=== PATIENT | male | born 1970 | race Hispanic/Latino ===

== ENCOUNTER 2020-10-29 12:03 | Emergency (ER) | payer OTHER, SELFPAY ==
--- OUTSIDE RECORDS SUMMARY | 2020-10-29 12:05 | XMS REPORT | Continuity of Care Document ---
:1970 Author Organization [facility] t Address [address] [place] [address] Care Team Providers Name Role Phone Erika Fisher RN Attending Clinician Dimple Jorgensen DO Attending Clinician Maryan Sanchez Attending Clinician Hipolito Attending Clinician Ashlyn FLORES Attending Clinician Johnny HICKEY Attending Clinician Luis HICKEY Attending Clinician Cameron HICKEY Attending Clinician Cameron HICKEY Admitting Clinician Payers Payer Name Policy Type Policy Number Effective Date Expiration Date S ource Problems This patient has no known problems. Allergies, Adverse Reactions, Alerts This patient has no known allergies or adverse reactions. Medications This patient has no known medications. Procedures This patient has no known procedures. Encounters Start End Encounter Admission Attending Care Care Encounter Source Date/Time Date/Time Type Type Clinicians Facility Department ID 2020-10-18 2020-10-18 Patient Erika Fisher [id number] 00:00:00 00:00:00 Outreach E [place] [id number] [place] [id number] 2020-10-11 2020-10-11 Patient Erika Fisher [id number] 00:00:00 00:00:00 Outreach E [place] [id number] [place] [id number] 2020-10-06 2020-10-06 Emergency [facility] [id number] 11:18:00 14:27:00 Ce [place] [id number] [place] [id number] [place] [id number] 2020-10-02 2020-10-02 Emergency [facility] [id number] 18:17:00 22:59:00 Laisha [place] [id number] [place] [id number] [place] [id number] 2020-09-29 2020-09-29 Transition Donald Mcmillan [id number] 00:00:00 00:00:00 of Care Delaney [place] [id number] [place] [id number] 2020-09-29 2020-09-29 Transition Donald Goldberg [id number] 00:00:00 00:00:00 of Care Nadiya [place] [id number] [place] [id number] 2020-09-25 2020-09-27 [facility] Sreedhar Turner [facility] [id number] 13:46:00 14:30:00 Encounter Martín Smith [id number] Mary [place] [id number] [place] [id number] Results This patient has no known results.
[2020-10-29] MEDS ORDERED: TRAMADOL HCL 50 MG TAB ONE (14:16)
[2020-10-29 14:32] LABS: MPV 8.5 fL (7.6-11.3); RBC Red Blood Cell Count 4.06 M/uL (4.33-5.43)
[2020-10-29 14:59] LABS: ALT/SGPT 69 U/L (12-78); AST/SGOT 56 U/L (15-37); Albumin 1.7 g/dL (3.4-5.0); Alkaline Phosphatase 319 U/L (45-117); BUN Blood Urea Nitrogen 18 mg/dL (7-18); Bicarbonate 26 mmol/L (21-32); Bilirubin Total 0.2 mg/dL (0.2-1.0); Potassium 4.2 mmol/L (3.5-5.1); Protein, Total 5.4 g/dL (6.4-8.2); Sodium Level 128 mmol/L (136-145)
[2020-10-29 15:06] LABS: Glucose Level 696 mg/dL (74-106)
--- NOTE | 2020-10-31 16:35 | ER ---
Nurse's Notes [facility] Name: Lee Dhillon Age: 50 yrs Sex: Male : 1970 Arrival Date: 10/29/2020 Time: 12:05 Bed 16 Private MD: Diagnosis: Diabetes mellitus due to underlying condition with hyperglycemia Presentation: 10/29 12:36 Chief complaint: Patient states: "I fell this morning. My legs and feet gave out on ss me." Pt reports that for the past few months he has been having issues with neuropathy because of his diabetes and has been seen previously for the same thing at [facility]. Coronavirus screen: Client denies travel out of the [place] in the last 14 days. Ebola Screen: Patient denies exposure to infectious person. Patient denies travel to an Ebola-affected area in the 21 days before illness onset. Initial Sepsis Screen: Does the patient meet any 2 criteria? No. Patient's initial sepsis screen is negative. Does the patient have a suspected source of infection? No. Patient's initial sepsis screen is negative. Risk Assessment: Do you want to hurt yourself or someone else? Patient reports no desire to harm self or others. Onset of symptoms is unknown. 12:36 Method Of Arrival: Wheelchair ss 12:36 Acuity: CALLUM 3 ss Triage Assessment: 12:45 General: Appears distressed, uncomfortable, Behavior is cooperative, appropriate for bp age, anxious. Pain: Complains of pain in GENERALIZED. EENT: No deficits noted. Neuro: Level of Consciousness is awake, alert, obeys commands, Oriented to Appropriate for age. Cardiovascular: No deficits noted. Respiratory: No deficits noted. GI: No signs and/or symptoms were reported involving the gastrointestinal system. : No signs and/or symptoms were reported regarding the genitourinary system. Derm: No deficits noted. Musculoskeletal: No deficits noted. Circulation, motion, and sensation intact. Range of motion: intact in all extremities. Historical: - Allergies: 12:39 No Known Allergies; ss - PMHx: 12:39 Diabetes mellitus; Hypertensive disorder; High Cholesterol; Anxiety; Neuropathy; ss Osteoarthritis; Degenerative disc disease; - Immunization history:: Adult Immunizations unknown. - Social history:: Smoking status: Patient reports the use of cigarette tobacco products, smokes one pack cigarettes per day. - Family history:: not pertinent. Screenin:45 Abuse screen: Denies threats or abuse. Denies injuries from another. Nutritional bp screening: No deficits noted. Tuberculosis screening: No symptoms or risk factors identified. Fall Risk Fall in past 12 months (25 points). Assessment: 12:45 General: SEE TRIAGE NOTE. bp 14:00 Reassessment: Patient appears in no apparent distress at this time. No changes from bp previously documented assessment. Patient and/or family updated on plan of care and expected duration. Pain level reassessed. 16:17 Reassessment: PT D/C HOME VIA W/C WITH FAMILY, DX WITH DM AND HYPERGLYCEMIA. bp Vital Signs: 12:36 BP 152 / 89; Pulse 85; Resp 16; Temp 97.9(TE); Pulse Ox 99% on R/A; Weight 88.45 kg; ss Height 5 ft. 10 in. (177.80 cm); Pain 7/10; 14:00 BP 164 / 104; Pulse 70; Resp 16; Pulse Ox 100% ; bp 15:00 BP 161 / 99; Pulse 73; Resp 16; Pulse Ox 100% ; bp 16:00 BP 156 / 99; Pulse 72; Resp 17; Temp 98; Pulse Ox 100% ; bp 12:36 Body Mass Index 27.98 (88.45 kg, 177.80 cm) ss ED Course: 12:05 Patient arrived in ED. am2 12:39 Triage completed. ss 12:39 Arm band placed on right wrist. ss 12:55 Enrique Burgos MD is Attending Physician. ma2 13:38 Bob Jones, RN is Primary Nurse. bp 14:18 CBC w/o diff Sent. bp 14:18 CMP Sent. bp 14:21 Patient has correct armband on for positive identification. Bed in low position. Call bp light in reach. Side rails up X2. 16:17 No provider procedures requiring assistance completed. Patient did not have IV access bp during this emergency room visit. Administered Medications: 14:00 Drug: traMADol 50 mg Route: PO; bp 15:52 Follow up: Response: No adverse reaction; Pain is decreased bp 15:52 Not Given (Patient Refused): Insulin Regular Human 6 units IVP once bp Outcome: 15:49 Discharge ordered by . ma2 16:17 Discharged to home via wheelchair, with family. bp 16:17 Condition: stable 16:17 Discharge instructions given to patient, Instructed on discharge instructions, follow up and referral plans. medication usage, Demonstrated understanding of instructions, follow-up care, Prescriptions given X 2. 16:20 Patient left the ED. bp Signatures: Greta Fisher, RN RN Ramila Lebron am2 Bob Jones RN RN Enrique Marroquin MD MD ma2
--- NOTE | 2020-10-31 16:36 | EDPHYS ---
Physician Documentation [facility] Name: Lee Dhillon Age: 50 yrs Sex: Male : 1970 Arrival Date: 10/29/2020 Time: 12:05 Bed 16 Private MD: ED Physician Enrique Burgos HPI: 10/29 13:37 This 50 yrs old Male presents to ER via Wheelchair with complaints of Fall ma2 Injury, Pain All Over. 13:37 Details of fall: The patient fell from an upright position. Onset: The symptoms/episode ma2 began/occurred gradually, 1 year(s) ago. Severity of symptoms: in the emergency department the symptoms are unchanged. The patient has experienced similar episodes in the past. Has diabetes, chronic pain medicine, chronic swelling and edema, he was follow-up with a primary care doctor does not take any medicines, he is here because he wants medication for his chronic pain.. Historical: - Allergies: 12:39 No Known Allergies; ss - PMHx: 12:39 Diabetes mellitus; Hypertensive disorder; High Cholesterol; Anxiety; Neuropathy; ss Osteoarthritis; Degenerative disc disease; - Immunization history:: Adult Immunizations unknown. - Social history:: Smoking status: Patient reports the use of cigarette tobacco products, smokes one pack cigarettes per day. - Family history:: not pertinent. ROS: 13:37 Constitutional: Negative for fever, chills, and weight loss. ma2 13:37 All other systems are negative. Exam: 13:37 Constitutional: This is a well developed, well nourished patient who is awake, alert, ma2 and in no acute distress. Head/Face: Normocephalic, atraumatic. Eyes: Pupils equal round and reactive to light, extra-ocular motions intact. Lids and lashes normal. Conjunctiva and sclera are non-icteric and not injected. Cornea within normal limits. Periorbital areas with no swelling, redness, or edema. ENT: Nares patent. No nasal discharge, no septal abnormalities noted. Tympanic membranes are normal and external auditory canals are clear. Oropharynx with no redness, swelling, or masses, exudates, or evidence of obstruction, uvula midline. Mucous membranes moist. Neck: Trachea midline, no thyromegaly or masses palpated, and no cervical lymphadenopathy. Supple, full range of motion without nuchal rigidity, or vertebral point tenderness. No Meningismus. Chest/axilla: Normal chest wall appearance and motion. Nontender with no deformity. No lesions are appreciated. Cardiovascular: Regular rate and rhythm with a normal S1 and S2. No gallops, murmurs, or rubs. Normal PMI, no JVD. No pulse deficits. Respiratory: Lungs have equal breath sounds bilaterally, clear to auscultation and percussion. No rales, rhonchi or wheezes noted. No increased work of breathing, no retractions or nasal flaring. Abdomen/GI: Soft, non-tender, with normal bowel sounds. No distension or tympany. No guarding or rebound. No evidence of tenderness throughout. Skin: Warm, dry with normal turgor. Normal color with no rashes, no lesions, and no evidence of cellulitis. MS/ Extremity: Pulses equal, no cyanosis. Neurovascular intact. Full, normal range of motion. Neuro: Awake and alert, GCS 15, oriented to person, place, time, and situation. Cranial nerves II-XII grossly intact. Motor strength 5/5 in all extremities. Sensory grossly intact. Cerebellar exam normal. Normal gait. Vital Signs: 12:36 BP 152 / 89; Pulse 85; Resp 16; Temp 97.9(TE); Pulse Ox 99% on R/A; Weight 88.45 kg; ss Height 5 ft. 10 in. (177.80 cm); Pain 7/10; 14:00 BP 164 / 104; Pulse 70; Resp 16; Pulse Ox 100% ; bp 15:00 BP 161 / 99; Pulse 73; Resp 16; Pulse Ox 100% ; bp 16:00 BP 156 / 99; Pulse 72; Resp 17; Temp 98; Pulse Ox 100% ; bp 12:36 Body Mass Index 27.98 (88.45 kg, 177.80 cm) MDM: 13:01 Patient medically screened. ma2 13:37 Differential diagnosis: contusion, sprain, strain. ma2 15:48 Data reviewed: vital signs, nurses notes. Counseling: I had a detailed discussion with ma2 the patient and/or guardian regarding: the historical points, exam findings, and any diagnostic results supporting the discharge/admit diagnosis, the presence of at least one elevated blood pressure reading (>120/80) during this emergency department visit, the need for outpatient follow up. Response to treatment: the patient's symptoms have markedly improved after treatment. 10/29 13:37 Order name: CBC w/o diff ma2 10/29 13:37 Order name: CMP ma2 10/29 13:38 Order name: CBC without Diff; Complete Time: 14:53 EDMS 10/29 13:38 Order name: Comprehensive Metabolic Panel; Complete Time: 15:06 EDMS 10/29 13:37 Order name: Diet Regular; Complete Time: 13:38 ma2 Administered Medications: 14:00 Drug: traMADol 50 mg Route: PO; bp 15:52 Follow up: Response: No adverse reaction; Pain is decreased bp 15:52 Not Given (Patient Refused): Insulin Regular Human 6 units IVP once bp Disposition Summary: 10/29/20 15:49 Discharge Ordered Location: Home ma2 Condition: Stable ma2 Diagnosis - Diabetes mellitus due to underlying condition with hyperglycemia ma2 Followup: ma2 - With: Private Physician - When: Tomorrow - Reason: Continuance of care Discharge Instructions: - Discharge Summary Sheet ma2 - Hyperglycemia ma2 Forms: - Medication Reconciliation Form ma2 - Thank You Letter ma2 - Antibiotic Education ma2 - Prescription Opioid Use ma2 Prescriptions: - Neurontin 300 mg Oral Capsule - take 1 capsule by ORAL route At bedtime; 60 capsule; Refills: 0, Product ma2 Selection Permitted - Lasix 20 mg Oral Tablet - take 1 tablet by ORAL route once daily; 60 tablet; Refills: 0, Product ma2 Selection Permitted Signatures: Dispatcher [employer] Greta Palumbo RN RN ss Peltier, Brian, RN RN bp Alzahri, Mohammad, MD MD ma2
[2020-10-31 22:34] VITALS: O2SAT 100
[2020-10-31 22:37] VITALS: BP 156/99; TEMP 98
== END 2020-10-29 16:20 | disposition home or self-care (01) ==
LOC: ER 12:03
DX: E11.65 Type 2 diabetes mellitus with hyperglycemia (principal); W19.XXXA Unspecified fall, initial encounter; I10 Essential (primary) hypertension; F17.210 Nicotine dependence, cigarettes, uncomplicated
CPT/HCPCS: 36415; 80053; 85027; 99283